=== PATIENT | male | born 1960 | race Caucasian/White ===

== ENCOUNTER 2021-12-30 20:11 | Emergency (ER) | payer BC ==
[2021-12-30 22:46] LABS: HEMOGLOBIN 14.2 gm/dl (14.0-17.5); RED BLOOD COUNT 4.42 M/UL (4.20-5.50); WHITE BLOOD COUNT 10.5 K/UL (4.5-11.0)
[2021-12-30 23:06] LABS: BUN/CREATININE RATIO 22 (0-10)
[2021-12-31] MEDS ORDERED: CYCLOBENZAPRINE10 MG PO (02:12)
== END 2021-12-31 02:25 | disposition home or self-care (01) ==
LOC: ER1 20:11
PROVIDERS: Physician Assistant
DX: R10.9 Unspecified abdominal pain (principal); R03.0 Elevated blood-pressure reading, without diagnosis of hypertension; M54.50 Low back pain, unspecified; Z20.822 Contact with and (suspected) exposure to COVID-19
CPT/HCPCS: 0240U; 80053; 81001; 83690; 83735; 85025; 93005; 96374; 99284; J1885; Q9967